=== PATIENT | male | born 1990 | race African-American/Black ===

== ENCOUNTER 2022-03-25 05:51 | Emergency (ER) | payer MEDICARE, MEDICAID, SELFPAY ==
--- NOTE | ~2022-03-25 | XR_ITS ---
EXAMINATION: XR CHEST CLINICAL INFORMATION: Covid positive. SOB. COMPARISON: None TECHNIQUE: Frontal view of the chest was obtained. FINDINGS: No significant abnormality is noted involving the heart, lungs, mediastinum, bony thorax or soft tissues. XR/XR chest 1V IMPRESSION: Unremarkable chest examination.
--- NOTE | ~2022-03-25 | CT_ITS ---
EXAMINATION: CT ABDOMEN AND PELVIS WITHOUT CONTRAST CLINICAL INFORMATION: Abdominal pain, nausea vomiting and diarrhea COMPARISON: None TECHNIQUE: Multidetector volumetric imaging was performed from the superior aspect of the liver through the pubic symphysis. Sagittal and coronal reformatted images were obtained on the technologist's workstation. This CT examination was performed using dose optimization techniques as appropriate, variously including the following: *Automated exposure control *Adjustment of mA and/or kV according to patient size (this includes techniques or standardized protocols for targeted exams where dose is matched to indication/reason for exam; i.e. extremities or head) *Use of iterative reconstruction technique DLP: 794 mGy-cm FINDINGS: LUNG BASES: The visualized lung bases are unremarkable. LIVER, GALLBLADDER, AND BILIARY TREE: The liver is normal in size, shape, and attenuation. No focal hepatic lesion or biliary ductal dilatation is present. The gallbladder is unremarkable with no evidence of radiopaque gallstones, gallbladder wall thickening, or obvious pericholecystic inflammatory changes. PANCREAS: Unremarkable. SPLEEN: Unremarkable. ADRENAL GLANDS: Unremarkable. KIDNEYS AND URETERS: The kidneys are normal in size, shape, and attenuation. No hydronephrosis, hydroureter, or calculi seen. No perinephric stranding. BLADDER: Unremarkable. GASTROINTESTINAL TRACT: The small and large bowel are unremarkable. The appendix is unremarkable. ABDOMINAL WALL: No significant hernia is appreciated. LYMPH NODES: Normal. VASCULAR: Unremarkable. PELVIC VISCERA: Uterus appears to have been removed. No pelvic mass. OSSEOUS STRUCTURES: Unremarkable. CT/CT abdomen pelvis wo con IMPRESSION: Unremarkable exam. Fleischner guidelines were followed.
[2022-03-25 05:55] VITALS: BP 126/73; PULSE 67; O2SAT 100
[2022-03-25 05:56] VITALS: BMI 30.4
[2022-03-25 06:01] VITALS: BP 132/76; PULSE 69; RESP 18; TEMP 37.1; O2SAT 100
--- NOTE | 2022-03-25 09:28 | ECG_ITS ---
Test Reason : abd pain Blood Pressure : / mmHG Vent. Rate : 064 BPM Atrial Rate : 064 BPM P-R Int : 186 ms QRS Dur : 084 ms QT Int : 390 ms P-R-T Axes : 040 052 023 degrees QTc Int : 402 ms Normal sinus rhythm with sinus arrhythmia Septal infarct , age undetermined Abnormal ECG No previous ECGs available Referred By: Mechelle Esqueda Electronically Signed By:SEAN RUFF MD
--- NOTE | 2022-03-25 09:57 | ED_ITS ---
HPI - Nausea/Vomiting/Diarrhea General Chief complaint: Nausea/Vomiting/Diarrhea Stated complaint: NAUSEA/VOMITING X'S 3 DAYS PER EMS Time Seen by Provider: 03/25/22 09:13 Source: patient Mode of arrival: ambulatory History of Present Illness HPI Narrative: 31-year-old male with past medical history of deafness, COVID-19 positive on 03/17/2022, presenting to the ED complaining of epigastric abdominal pain, nausea, vomiting, and diarrhea x3 days. Reports decreased p.o. intake/inability to tolerate p.o. admits to epigastric burning. Also reports exertional SOB. Denies fever, chills, dysuria/hematuria, flank pain, chest pain MD elicited complaint: nausea, vomiting, diarrhea and abdominal pain Onset (ago): day(s) Related Data Previous Rx's Medication Instructions Recorded aluminum-mag hydroxide-simethicone 5 ml PO 5XD PRN dyspepsia #30 mL 03/25/22 200 mg-200 mg-20 mg/5 mL oral susp (Maalox Advanced) famotidine 20 mg tablet (Pepcid) 20 mg PO DAILY #14 tabs 03/25/22 ondansetron 4 mg disintegrating 4 mg PO Q8H PRN nausea and 03/25/22 tablet vomiting #10 tabs Allergies Allergy/AdvReac Type Severity Reaction Status Date / Time Unable to Assess Allergy Verified 03/25/22 05:58 Review of Systems Review of Systems: Constitutional: No Fever, No Chills, No Fatigue, No Malaise ENT/Mouth: No Ear Pain, No Nasal Congestion, No Sinus Pain, No Hoarseness, No sore throat, No Rhinorrhea, No Swallowing Difficulty Eyes: No Eye Pain, No Swelling, No Redness, No Vision Changes Cardiovascular: No Chest Pain, No SOB, + Dyspnea on Exertion, No Edema Respiratory: No Cough, No Sputum, No Dyspnea Gastrointestinal: + Nausea, + Vomiting, + Diarrhea, No Constipation, + Abdominal pain Genitourinary: No Dysuria, No Urinary Frequency, No Hematuria,No Flank Pain, No Urinary Flow Changes Musculoskeletal: No joint pain, No Myalgias, No Joint Swelling Skin: No Skin Lesions, No rash Neuro: No Weakness, No Numbness, No Headache Yes all other systems are reviewed and are negative PMFSH Past Medical History Attestation statement: The following information was validated with the patient. Social History Social History Advance Directives: Yes Advance Directives Information Provided: Yes Advance Directives on File: No Physical Exam Vital Signs: Vital Signs: Last Vital Signs Temp 98.8 F 03/25/22 06:01 Pulse 60 03/25/22 11:13 Resp 17 03/25/22 11:13 BP 116/64 03/25/22 11:13 Pulse Ox 97 03/25/22 11:13 O2 Del Method 03/25/22 11:13 BMI result Body Mass Index 30.4 Const: General: cooperative, healthy appearing, no acute distress, alert and awake Orientation/consciousness: patient oriented x3 Limitations: no limitations HEENT: Head: Yes normal to inspection and Yes atraumatic Ears: hearing grossly normal bilaterally General nose exam: Normal external nose present Face and sinus: Yes normal facial exam Eyes: General: appearance normal, both eyes and all related structures EOM: EOMs intact bilaterally Neck: Neck: Yes normal visual inspection and Yes no meningeal signs Resp: Effort & Inspection: normal respiratory effort and no respiratory distress Auscultation: clear to auscultation bilaterally, no crackles, no rales, no rhonchi and no wheezes Cardio: Rate: regular rate Heart sounds: S1 normal heart sound present and S2 normal heart sound present GI: Inspection: Yes normal to inspection Palpation (GI): Soft to palpation, Tenderness to palpation present (GI) in the epigastrum and suprapubicly, no guarding and not rigid : General: Yes no CVA tenderness Back/Spine/Pelvis: Back: no CVA tenderness Skin: Rashes: no rashes Wounds: no wounds Neuro: General: patient oriented x3, tone normal and no meningeal signs Gait exam (Neuro): Normal gait present Extrem: General: Yes normal to inspection Course Course Course Narrative: On re-evaluation patient is sleeping comfortably -1126--labs unremarkable. No leukocytosis. UA negative -chest x-ray unremarkable -CT abdomen/pelvis unremarkable. Results discussed with patient, reports symptomatic improvement at present will p.o. challenge -patient was able to tolerate p.o. > discussed worrisome signs and symptoms and strict return precautions MDM - Nausea/Vomiting/Diarrhea MDM Narrative Medical decision making narrative: 31-year-old male with past medical history of deafness, COVID-19 positive on 03/17/2022, presenting to the ED complaining of epigastric abdominal pain, nausea, vomiting, and diarrhea x3 days. On exam vital signs stable, NAD, nontoxic appearing, abdomen soft with epigastric and suprapubic tenderness, no rebound or guarding. Concern for GERD/gastritis vs pancreatitis vs diverticulitis or UTI. Lower concern pyelo, cholecystitis/lithiasis or appendicitis. Plan: Labs, UA, CT abdomen/pelvis, CXR, IVF, symptomatic treatment, re-evaluate Differential Diagnosis Differential diagnosis: Likely gastroenteritis and dehydration Medical Records Attestation: I reviewed the patient's medical records. Lab Data Attestation: I reviewed the patient's lab results. Result diagrams: 03/25/22 09:53 03/25/22 09:53 Labs: Lab Results 03/25/22 03/25/22 03/25/22 Range/Units 09:52 09:53 09:53 WBC 7.6 (4.8-10.8) X10*3/uL RBC 4.59 L (4.60-5.80) X10*6/uL Hgb 15.0 (14.0-18.0) g/dl Hct 43.9 (42.0-52.0) % MCV 95.6 (80.0-98.0) fL MCH 32.7 (27.0-33.0) pg MCHC 34.2 (31.0-36.0) g/dl RDW 12.9 (11.0-16.0) % Plt Count 250 (160-400) X10*3/uL MPV 10.2 (9.4-12.4) fL Immature Gran % (Auto) 0.3 (0.0-0.4) % Neut % (Auto) 62.1 (45-73) % Lymph % (Auto) 29.9 (20-40) % [place] % (Auto) 6.2 (2-11) % Eos % (Auto) 1.2 (0-4) % Baso % (Auto) 0.3 (0-2) % Lymph # (Auto) 2.3 (1.2-4.9) X10*3/uL [place] # (Auto) 0.5 (0.1-1.2) X10*3/uL Eos # (Auto) 0.1 (0.0-0.4) X10*3/uL Baso # (Auto) 0.0 (0.0-0.2) X10*3/uL Abs Immat Gran (auto) 0.02 (0.00-0.03) X10*3/uL Absolute Neuts (auto) 4.7 (2.0-8.3) x10*3/uL Absolute Nucleated RBC 0.000 (0.0-0.012) X10*3/uL Nucleated RBC % (auto) 0.0 (0.0-0.2) /100WBC Sodium 138 (135-145) mmol/L Potassium 4.2 (3.3-5.1) mmol/L Chloride 105 (96-108) mmol/L Carbon Dioxide 27 (22-29) mmol/L Anion Gap 10 L (12-20) BUN 11 (9-16) mg/dL Creatinine 0.91 (0.5-1.4) mg/dL Estim Creat Clear Calc 131.0 Estimated GFR > 60 Random Glucose 96 (60-115) mg/dL Calcium 9.2 (8.4-10.2) mg/dL Magnesium 1.9 (1.6-2.6) mg/dL Total Bilirubin 0.7 (0.0-1.0) mg/dL Direct Bilirubin 0.3 (0.0-0.5) mg/dL AST 15 (5-37) U/L ALT 13 (0-40) U/L Alkaline Phosphatase 79 (39-117) U/L Total Protein 6.8 (6.5-8.0) g/dL Albumin 4.2 (3.5-5.0) g/dL Lipase 78 (8-78) U/L Urine Color YELLOW Urine Appearance CLEAR Urine pH 8.0 (5.0-8.0) Ur Specific [place] 1.015 (1.005-1.025) Urine Protein NEG (NEG-TRACE) MG/DL Urine Glucose (UA) NEG (NEG) MG/DL Urine Ketones NEG (NEG) MG/DL Urine Blood NEG (NEG) Urine Nitrite NEG (NEG) Ur Leukocyte Esterase NEG (NEG) Discharge Plan Discharge Clinical Impression: Abdominal pain, Nausea & vomiting Patient Disposition: Home, Self-Care Instructions: Acute Nausea and Vomiting (ED), Abdominal Pain (ED) Additional Instructions: Your blood work is reassuring. Your x-ray and CT scan are unremarkable Zofran as an antinausea medication, take as needed for nausea and vomiting Maalox & Pepcid will help with acid reduction Please practice of bland diet, avoid spicy food, sweets, caffeine, chocolate Please follow-up with a residential door installer. If symptoms persist or worsen, your unable to eat or drink, have fever, or constant/worsening pain please return to the emergency department Prescriptions: New famotidine [Pepcid] 20 mg tablet 20 mg PO DAILY Qty: 14 0RF alum-mag hydroxide-simeth [Maalox Advanced] 200-200-20 mg/5 mL suspension 5 ml PO 5XD PRN (Reason: dyspepsia) Qty: 30 0RF Rx Instructions: administer between meals and at bedtime ondansetron 4 mg tablet,disintegrating 4 mg PO Q8H PRN (Reason: nausea and vomiting) Qty: 10 0RF Referrals: Dalila King MD [Physician] - 5 days
[2022-03-25] MEDS: 0.9 % Sodium Chloride 1,000 ML 999 ML IV ×2 (10:02→10:49)
[2022-03-25] MEDS: Famotidine/PF 20 MG/2 ML VIAL IVPUSH (10:03)
[2022-03-25] MEDS: Lidocaine HCl Viscous 2 % 15 ML SOLUTION MUCOUS MEM (10:04)
[2022-03-25] MEDS: ondansetron HCL 4 MG/2 ML VIAL IVPUSH (10:05)
[2022-03-25] MEDS: Magnesium Hydrox/Alum Hydrox 30 ML ORAL.SUSP PO (10:05)
[2022-03-25 10:09] LABS: MANUAL DIFF FLAG NO
[2022-03-25 10:10] LABS: Basophils Percent Auto 0.3 % (0-2); Eosinophils Absolute Auto 0.1 X10*3/uL (0.0-0.4); Eosinophils Percent Auto 1.2 % (0-4); Hematocrit 43.9 % (42.0-52.0); Imm Gran Abs Auto 0.02 X10*3/uL (0.00-0.03); Imm Gran Pct Auto 0.3 % (0.0-0.4); Lymphocytes Absolute Auto 2.3 X10*3/uL (1.2-4.9); Lymphocytes Percent Auto 29.9 % (20-40); Mean Corpuscular HGB Conc 34.2 g/dl (31.0-36.0); Mean Corpuscular Hemoglobin 32.7 pg (27.0-33.0); Mean Corpuscular Volume 95.6 fL (80.0-98.0); Mean Platelet Volume 10.2 fL (9.4-12.4); Monocytes Absolute Auto 0.5 X10*3/uL (0.1-1.2); Monocytes Percent Auto 6.2 % (2-11); Neutrophils Absolute Auto 4.7 x10*3/uL (2.0-8.3); Neutrophils Percent Auto 62.1 % (45-73); Platelet Count 250 X10*3/uL (160-400); Red Blood Count 4.59 X10*6/uL (4.60-5.80); Red Cell Distribution Width 12.9 % (11.0-16.0); White Blood Count 7.6 X10*3/uL (4.8-10.8)
[2022-03-25 10:12] LABS: Appearance Urine CLEAR; Color Urine YELLOW; Glucose Urine UA NEG (NEG); Leukocyte Esterase Urine NEG (NEG); Nitrite Urine NEG (NEG); Specific Gravity - Urine 1.015 (1.005-1.025); Urine Blood NEG (NEG); Urine Ketones NEG (NEG); Urine Protein NEG (NEG-TRACE)
[2022-03-25 10:43] LABS: Alanine Aminotransferase 13 U/L (0-40); Albumin Level 4.2 g/dL (3.5-5.0); Alkaline Phosphatase 79 U/L (39-117); Anion Gap 10 (12-20); Aspartate Amino Transferase 15 U/L (5-37); Bilirubin Direct 0.3 mg/dL (0.0-0.5); Bilirubin Total 0.7 mg/dL (0.0-1.0); Blood Urea Nitrogen 11 mg/dL (9-16); Calcium 9.2 mg/dL (8.4-10.2); Carbon Dioxide 27 mmol/L (22-29); Chloride 105 mmol/L (96-108); Estimated Glomerular Filt Rate > 60; Glucose Random 96 mg/dL (60-115); Lipase 78 U/L (8-78); Magnesium 1.9 mg/dL (1.6-2.6); Potassium 4.2 mmol/L (3.3-5.1); Sodium 138 mmol/L (135-145); Total Protein 6.8 g/dL (6.5-8.0)
[2022-03-25 11:13] VITALS: BP 116/64; PULSE 60; RESP 17; O2SAT 97
[2022-03-25] MEDS: Metoclopramide HCl 10 MG/2 ML VIAL IVPUSH (12:23)
== END 2022-03-25 13:04 | disposition home or self-care (01) ==
PROVIDERS: Physician Assistant; Emergency Provider Emergency Medicine
DX: R11.2 Nausea with vomiting, unspecified (principal); R19.7 Diarrhea, unspecified; Z79.899 Other long term (current) drug therapy; R07.89 Other chest pain
CPT/HCPCS: 36415; 71045; 74176; 80048; 80076; 81003; 83690; 83735; 85025; 93005; 96361; 96374; 96375; 99284; J2405; J2765

== ENCOUNTER 2022-07-08 00:56 | Inpatient (IN) | payer MEDICARE, MEDICAID, SELFPAY ==
--- NOTE | ~2022-07-08 | XR_ITS ---
EXAMINATION: XR HAND, LEFT CLINICAL INFORMATION: Punched glass COMPARISON: None TECHNIQUE: PA, lateral, and oblique views of the left hand. FINDINGS: No fracture or dislocation. Alignment maintained. Joint spaces are maintained. While marginated lucency in the fourth digit middle phalanx, with a nonaggressive appearance. The soft tissues are unremarkable. No radiopaque foreign body. XR/XR hand LT min 3V IMPRESSION: No fracture or malalignment. No radiopaque foreign body.
[2022-07-08 01:07] VITALS: BP 127/65; PULSE 98; RESP 18; TEMP 37.6; O2SAT 96; BMI 35.6
--- OUTSIDE RECORDS SUMMARY | 2022-07-08 02:33 | XMS_ITS | Continuity of Care Document ---
:1990 Author Organization [facility] Address [address] [place] [id number]- Care Team Providers Name Role Phone Sheng Morales DO Primary Care Physician Encounter [facility] Date(s): 08/24/20 - 08/29/[address] [id number] Encounter Diagnosis Suicidal ideation (Final) - 08/24/20 Discharge Disposition: Transfer to [facility] Facility Attending Physician: Korin Glass MD Admitting Physician: Korin Glass MD Referring Physician: Not on Staff, Referring MD Allergies, Adverse Reactions, Alerts Substance Reaction Severity Status NKA Active Immunizations Given and Recorded Vaccine Date Status Refusal Reason Human Papillomavirus Vaccine 04/27/12 Given influ virus vac, H1N1, inactive(oldterm) 09/03/09 Given Influenza Vaccine (oldterm) 06/12/09 Given Menactra (oldterm) 08/12/07 Given Meningococcal Conjugate Vaccine 08/12/07 Given influenza virus vaccine, inactivated 08/12/07 Given Tet/Diphth/Acel, Pertussis (oldterm) 02/20/05 Given Varicella Virus Vaccine 02/20/05 Given Measles/Mumps/Rubella Virus Vaccine 06/06/04 Given Measles/Mumps/Rubella Virus Vaccine 12/06/93 Given Haemophilus B Conj Vaccine (oldterm) 05/15/04 Given Haemophilus B Conj Vaccine (oldterm) 02/12/94 Given Haemophilus B Conj Vaccine (oldterm) 05/31/93 Given Haemophilus B Conj Vaccine (oldterm) 02/25/93 Given Haemophilus B Conj Vaccine (oldterm) 92 Given Diphth/Tet/Pertussis, Acel (oldterm) 06/19/97 Given Diphth/Tet/Pertussis, Acel (oldterm) 03/12/94 Given Diphth/Tet/Pertussis, Acel (oldterm) 05/31/93 Given Diphth/Tet/Pertussis, Acel (oldterm) 02/25/93 Given Diphth/Tet/Pertussis, Acel (oldterm) 92 Given Poliovirus Vaccine, Inactivated 06/19/97 Given Poliovirus Vaccine, Inactivated 03/12/94 Given Poliovirus Vaccine, Inactivated 02/25/93 Given Poliovirus Vaccine, Inactivated 92 Given Hepatitis B Vaccine (old term)1 12/13/94 Given Hepatitis B Vaccine (old term)2 08/14/94 Given Hepatitis B Vaccine (old term)3 92 Given 1Admin Note: exact day [id number] Note: exact day [id number] Note: exact day unknown Medications acetaminophen 325 mg oral tablet 650 mg, By Mouth, Every 8 hours, PRN, Refills 0, Maintenance, Pain , Moderate, 08/28/20 17:04:00 EST, Partial fill upon patient request if the prescription is for a schedule II opioid drug. Start Date: 08/28/20 Status: OrderedAerochamber See Instructions, # 1 units, Refills 5, Tot. Refills 5, Maintenance, to aid in delivery of meds 1 puff breath in over 10 seconds wait one minute repeat, 07/01/10 10:02:47 Start Date: 07/01/10 Status: Orderedhearing aid hearing aid, See Instructions, # 1 units, Refills 0, Tot. Refills 0, Maintenance, please evaluate and dispense a new hearing aid dx hearing loss, 01/13/12 12:19:40 Start Date: 01/13/12 Status: Orderedhearing evaluation at [facility] on 02/15 at 10am hearing evaluation at [facility] on 02/15 at 10am, See Instructions, # 1 application, Refills 0, Tot. Refills 0, Maintenance, dx hearing loss, 01/13/12 12:18:21 Start Date: 01/13/12 Status: OrderedhydrOXYzine pamoate 25 mg oral capsule 2 capsule = 50 mg, By Mouth, Every 6 hours, PRN Anxiety, 0 Refills, Maintenance, 08/28/20 17:04:00 EST, Capsule, Partial fill upon patient request if the prescription is for a schedule II opioid drug. Start Date: 08/28/20 Status: Orderedibuprofen 400 mg oral tablet 400 mg, 1, tablet, By Mouth, Every 8 hours, PRN, Refills 0, Maintenance, Pain , Moderate, 08/28/20 17:04:00 EST, Partial fill upon patient request if the prescription is for a schedule II opioid drug. Start Date: 08/28/20 Status: OrderedMaalox Plus Liquid 30 mL, By Mouth, Every 8 hours, PRN Indigestion, 0 Refills, Maintenance, 08/28/20 17:04:00 EST, Suspension, Partial fill upon patient request if the prescription is for a schedule II opioid drug. Start Date: 08/28/20 Status: Orderednaproxen 500 mg oral tablet 1 tablet = 500 mg, By Mouth, 2 times a day, # 60 tablet, 0 Refills, Maintenance, Tablet, 1 tablet ByMouth 2 times a day Start Date: 04/25/13 Status: OrderedProAir HFA 90 mcg/inh inhalation aerosol with adapter 2 puffs, Inhalation, Every 4 hours, PRN for wheezing, # 8.5 Gm, 2 Refills, Maintenance, Aerosol Start Date: 07/01/10 Status: OrderedtraZODone 50 mg oral tablet 50 mg, 1, tablet, By Mouth, Daily at bedtime, PRN, Refills 0, Maintenance, Sleep, 08/28/20 17:04:00 EST, Partial fill upon patient request if the prescription is for a schedule II opioid drug. Start Date: 08/28/20 Status: OrderedZoloft 50 mg oral tablet 0.5 tablet = 25 mg, By Mouth, Daily, 0 Refills, Maintenance, 08/28/20 17:04:00 EST, Tablet, Partial fill upon patient request if the prescription is for a schedule II opioid drug. Start Date: 08/28/20 Status: Ordered Problem List Condition Effective Dates Status Health Status Informant Behavior of childhood and Active adolescence(Confirmed) Deaf mutism(Confirmed) Active OBESITY(Confirmed) Active Vital Signs Most recent to oldest 1 2 3 [Reference Range]: Height 184 cm 184 cm 184 cm (08/29/20 8:15 AM) (08/29/20 8:10 AM) (08/28/20 10:52 AM) Weight 112.9 kg (08/28/20 4:24 AM) Oxygen Saturation [94-100 95 % 95 % 98 % %] (08/29/20 8:15 AM) (08/29/20 8:10 AM) (08/28/20 10:52 AM) Pulse Rate [55-90 bpm] 84 bpm 84 bpm 79 bpm (08/29/20 8:15 AM) (08/29/20 8:10 AM) (08/28/20 10:52 AM) Body Mass Index 33.35 [18.5-24.99] *>HHI* (08/28/20 4:24 AM) Blood Pressure 125/72 mm Hg 125/72 mm Hg 129/72 mm Hg [90-138/55-84 mm Hg] (08/29/20 8:15 AM) (08/29/20 8:10 AM) (08/14 01/31 10:52 AM) Respiratory Rate [16-30 16 br/min 18 br/min 16 br/mi n br/min] (08/29/20 8:15 AM) (08/29/20 8:10 AM) (08/28/20 10:52 AM) Temperature [96.8-100.4 97.6 DegF 97.6 DegF 98.2 Deg F DegF] (08/29/20 8:15 AM) (08/29/20 8:10 AM) (08/28/20 10:52 AM) Mode of Delivery (Oxygen) Room air Room air Room a ir (08/29/20 8:15 AM) (08/29/20 8:10 AM) (08/28/20 10:52 AM) Blood pressure sites Arm, right Arm, right Arm, right (08/29/20 8:10 AM) (08/28/20 10:52 AM) (08/28/20 4:42 AM) Temperature Route Temporal Temporal Temporal (08/29/20 8:15 AM) (08/29/20 8:10 AM) (08/28/20 10:52 AM) Dry Weight 112.9 kg (08/28/20 4:24 AM) Weight Obtained Via Standing scale (08/28/20 4:24 AM) Dry Weight Obtained Via Standing scale (08/28/20 4:24 AM)
[2022-07-08] MEDS: Diphth,Pertus(ACell),Tet Adult 0.5 ML SYRINGE IM (02:42)
[2022-07-08 02:46] LABS: MANUAL DIFF FLAG NO
--- NOTE | 2022-07-08 02:47 | PC.NURSE ---
Pt. informed he needed a tetanus shot. Pt. gave verbal consent. VIS provided.
--- NOTE | 2022-07-08 02:48 | PC.NURSE ---
Pt. calm and cooperative during hand stitches. Pt. expressed pain during lidocaine shots, but tolerated procedure well.
[2022-07-08 02:56] LABS: Basophils Percent Auto 0.3 % (0-2); Eosinophils Percent Auto 0.1 % (0-4); Hematocrit 42.5 % (42.0-52.0); Hemoglobin 14.5 g/dl (14.0-18.0); Imm Gran Abs Auto 0.04 X10*3/uL (0.00-0.03); Imm Gran Pct Auto 0.3 % (0.0-0.4); Lymphocytes Absolute Auto 1.4 X10*3/uL (1.2-4.9); Lymphocytes Percent Auto 10.3 % (20-40); Mean Corpuscular HGB Conc 34.1 g/dl (31.0-36.0); Mean Corpuscular Hemoglobin 32.3 pg (27.0-33.0); Mean Corpuscular Volume 94.7 fL (80.0-98.0); Mean Platelet Volume 10.2 fL (9.4-12.4); Monocytes Percent Auto 7.1 % (2-11); Neutrophils Absolute Auto 11.5 x10*3/uL (2.0-8.3); Neutrophils Percent Auto 81.9 % (45-73); Platelet Count 255 X10*3/uL (160-400); Red Blood Count 4.49 X10*6/uL (4.60-5.80); Red Cell Distribution Width 12.8 % (11.0-16.0)
[2022-07-08] MEDS: Lidocaine HCl 2 % MPF 5 ML VIAL 10 ML SUBCUT (02:56)
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
[2022-07-08 03:12] LABS: Ethanol < 10 mg/dL
[2022-07-08 03:15] LABS: Alanine Aminotransferase 11 U/L (0-40); Albumin Level 4.5 g/dL (3.5-5.0); Alkaline Phosphatase 90 U/L (39-117); Anion Gap 14 (12-20); Aspartate Amino Transferase 18 U/L (5-37); Bilirubin Total 0.5 mg/dL (0.0-1.0); Blood Urea Nitrogen 14 mg/dL (9-16); Calcium 9.3 mg/dL (8.4-10.2); Carbon Dioxide 24 mmol/L (22-29); Chloride 106 mmol/L (96-108); Creatinine Clr Calc Pharmacy 105.4; Estimated Glomerular Filt Rate > 60; Glucose Random 143 mg/dL (60-115); Potassium 3.8 mmol/L (3.3-5.1); Sodium 140 mmol/L (135-145); Total Protein 7.3 g/dL (6.5-8.0)
[2022-07-08 03:17] LABS: COVID-19 Test Negative (Negative)
--- NOTE | 2022-07-08 04:09 | PC.NURSE ---
Of noteL: the wardrobe manager Ipad was placed at the bedside for the provider to use during her initial assessment but the provider decided not tu use the Ipad since, per the provider, the pt is able to r4ead lips really well. Other staff memebers, including myself, were able to communicate extremely effectively with the patient by writing and allowing him to write.
--- NOTE | 2022-07-08 04:44 | PC.NURSE ---
BHN referral submitted at this time
[2022-07-08] MEDS: LORazepam 1 MG TABLET 2 MG PO ×2 (05:28→15:32)
--- NOTE | 2022-07-08 05:46 | PC.NURSE ---
Addendum entered by Chau Durán RN 07/08/22 06:21: Patient is deaf and non-verbal Original Note: Patient was transferred from main ED, independent ambulation, per report from RN patient received 18 stitches for his left hand laceration, left has intact dressing, patient appears anxious and mad, attempted to communicate via CYRACOM, patient expressed his deep frustration over how he is being treated at home by his parents, patient reported he is anxious, agreed to take medication for his anxiety, provider notified/ordered Ativan 2 mg PO administered at 0528, pending effect, patient is currently in his bed resting, per ED RN report BHN referral completed/confirmed/pending ETA, med rec completed/patient is currently not on any home medication, urine pending, VSS, will continue to monitor.
--- NOTE | 2022-07-08 08:27 | PC.NURSE ---
Patient resting, resp unlabored
[2022-07-08 11:46] VITALS: BP 128/68; PULSE 82; TEMP 37.1; O2SAT 98
--- NOTE | 2022-07-08 12:16 | PC.NURSE ---
Patient evaluated with diet counselor present- patient alert, oriented, denies SI/HI, denies AH/VH. Patient evaluated by BHN, may be discharged.
--- NOTE | 2022-07-08 15:45 | PC.NURSE ---
[facility] staff in to transport patient to . Dressing changed to right hand- sutures intact, dry and clean. Patient assessed w/ spanish medical interpreter present. questions answered as asked, explained to patient admission and inpatient process. no further questions asked. Patient initially tearful, was willing to take Ativan as ordered for anxiety.
[2022-07-08 16:44] VITALS: BP 123/76; PULSE 71; TEMP 36.6
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
--- NOTE | 2022-07-08 20:38 | HO.PSYADMNOT ---
HPI Chief Complaint: Agitation Diagnostics Vital Signs (24Hr): Vital Signs - 24 hr 07/08/22 01:07 07/08/22 11:46 07/08/22 16:44 Temperature 99.7 F 98.7 F 97.9 F Pulse Rate 98 82 71 Respiratory Rate 18 Blood Pressure 127/65 128/68 123/76 Pulse Oximetry 96 98 Oxygen Delivery Method Room Air Room Air BMI result Body Mass Index 35.6 Labs Results: 07/08/22 02:41 07/08/22 02:41 Labs: Laboratory Results - last 48 hr 07/08/22 07/08/22 07/08/22 02:41 02:41 02:41 WBC 14.0 H RBC 4.49 L Hgb 14.5 Hct 42.5 MCV 94.7 MCH 32.3 MCHC 34.1 RDW 12.8 Plt Count 255 MPV 10.2 Immature Gran % (Auto) 0.3 Neut % (Auto) 81.9 H Lymph % (Auto) 10.3 L [place] % (Auto) 7.1 Eos % (Auto) 0.1 Baso % (Auto) 0.3 Lymph # (Auto) 1.4 [place] # (Auto) 1.0 Eos # (Auto) 0.0 Baso # (Auto) 0.0 Abs Immat Gran (auto) 0.04 H Absolute Neuts (auto) 11.5 H Absolute Nucleated RBC 0.000 Nucleated RBC % (auto) 0.0 Sodium 140 Potassium 3.8 Chloride 106 Carbon Dioxide 24 Anion Gap 14 BUN 14 Creatinine 1.26 Estim Creat Clear Calc 105.4 Estimated GFR > 60 Random Glucose 143 H D Calcium 9.3 Total Bilirubin 0.5 AST 18 ALT 11 Alkaline Phosphatase 90 Total Protein 7.3 Albumin 4.5 Ethyl Alcohol COVID-19 (NOLAN) Negative COVID-19 Clin Com See Note 07/08/22 02:41 WBC RBC Hgb Hct MCV MCH MCHC RDW Plt Count MPV Immature Gran % (Auto) Neut % (Auto) Lymph % (Auto) [place] % (Auto) Eos % (Auto) Baso % (Auto) Lymph # (Auto) [place] # (Auto) Eos # (Auto) Baso # (Auto) Abs Immat Gran (auto) Absolute Neuts (auto) Absolute Nucleated RBC Nucleated RBC % (auto) Sodium Potassium Chloride Carbon Dioxide Anion Gap BUN Creatinine Estim Creat Clear Calc Estimated GFR Random Glucose Calcium Total Bilirubin AST ALT Alkaline Phosphatase Total Protein Albumin Ethyl Alcohol < 10 COVID-19 (NOLAN) COVID-19 Clin Com Imaging Radiology Impressions: ITS Impressions Hand X-Ray 07/08/22 01:35 IMPRESSION: No fracture or malalignment. No radiopaque foreign body. Meds/Allergies Meds Home Medications Medication Instructions Recorded Confirmed Type No Known Home Meds 07/08/22 07/08/22 History Allergies Allergies Allergy/AdvReac Type Severity Reaction Status Date / Time Unable to Assess Allergy Verified 03/25/22 05:58
[2022-07-09 08:09] VITALS: BP 140/74; PULSE 65; RESP 16; TEMP 36.8; O2SAT 97
[2022-07-09 09:08] LABS: MANUAL DIFF FLAG NO
[2022-07-09 09:12] LABS: Basophils Percent Auto 0.5 % (0-2); Eosinophils Absolute Auto 0.1 X10*3/uL (0.0-0.4); Eosinophils Percent Auto 1.4 % (0-4); Hematocrit 44.3 % (42.0-52.0); Hemoglobin 15.1 g/dl (14.0-18.0); Imm Gran Abs Auto 0.02 X10*3/uL (0.00-0.03); Imm Gran Pct Auto 0.2 % (0.0-0.4); Lymphocytes Absolute Auto 2.4 X10*3/uL (1.2-4.9); Lymphocytes Percent Auto 28.5 % (20-40); Mean Corpuscular HGB Conc 34.1 g/dl (31.0-36.0); Mean Corpuscular Hemoglobin 32.2 pg (27.0-33.0); Mean Corpuscular Volume 94.5 fL (80.0-98.0); Mean Platelet Volume 10.6 fL (9.4-12.4); Monocytes Absolute Auto 0.7 X10*3/uL (0.1-1.2); Monocytes Percent Auto 8.7 % (2-11); Neutrophils Absolute Auto 5.1 x10*3/uL (2.0-8.3); Neutrophils Percent Auto 60.7 % (45-73); Platelet Count 242 X10*3/uL (160-400); Red Blood Count 4.69 X10*6/uL (4.60-5.80); Red Cell Distribution Width 13.2 % (11.0-16.0); White Blood Count 8.5 X10*3/uL (4.8-10.8)
[2022-07-09 09:25] LABS: Estimated Average Glucose 103 mg/dL; Hemoglobin A1c % 5.2 %
[2022-07-09 09:40] LABS: Cholesterol 167 mg/dL; HDL Cholesterol 39 mg/dL; LDL Cholesterol Calculated 116 mg/dl; Triglycerides 60 mg/dL
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
[2022-07-09 17:43] VITALS: BP 122/78; PULSE 82; RESP 16; TEMP 36.4; O2SAT 96
[2022-07-09] MEDS: traZODone HCL 50 MG TABLET PO (21:32)
--- NOTE | 2022-07-10 05:33 | PC.NURSE ---
05:00 Pt. came to me with a note written on a napkin stating I am afraid of my parents I don't ever want to speak to them again. When asked if he wanted them to be restricted from coming here he nodded affirmatively. When asked if he wanted the doctor speak to them he nodded affirmatively again.
[2022-07-10 07:00] VITALS: BMI 33.9
[2022-07-10 08:44] LABS: Thyroid Stimulating Hormone 1.27 uIU/mL (0.32-4.0)
[2022-07-10 09:04] LABS: Folate 10.4 ng/mL (> or = 4.0); Vitamin B12 514 pg/mL (200-900)
[2022-07-10] MEDS: Sertraline HCL 50 MG TABLET PO (09:17)
[2022-07-10 09:22] VITALS: BP 146/95; PULSE 84; RESP 18; TEMP 36.6; O2SAT 98
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
== END 2022-07-10 13:45 | disposition home or self-care (01) | DRG 882 ==
LOC: HO.ED 03:21 → HO.PM5 15:26
PROVIDERS: Admitting Provider Psychiatry & Neurology Psychiatry; Emergency Provider Student in an Organized Health Care Education/Training Program; Visit Provider Clinical Nurse Specialist Psychiatric/Mental Health, Adult
DX: F43.25 Adjustment disorder with mixed disturbance of emotions and conduct (principal); S61.412A Laceration without foreign body of left hand, initial encounter; W25.XXXA Contact with sharp glass, initial encounter; Z20.822 Contact with and (suspected) exposure to COVID-19; Z23 Encounter for immunization; H91.93 Unspecified hearing loss, bilateral
CPT/HCPCS: 36415; 73130; 80053; 80061; 82077; 82607; 82746; 83036; 84443; 85025; 87635; 90686; 90715; 90792; 99285

== ENCOUNTER 2022-07-17 15:56 | Emergency (ER) | payer MEDICARE, MEDICAID, SELFPAY ==
[2022-07-17 16:01] VITALS: BP 112/52; PULSE 77; RESP 18; TEMP 36.1; O2SAT 97; BMI 30.5
== END 2022-07-17 18:10 | disposition left against medical advice (07) ==
PROVIDERS: Emergency Provider Emergency Medicine; PCP Family Medicine
DX: Z48.02 Encounter for removal of sutures (principal)
CPT/HCPCS: 99281

== ENCOUNTER 2023-10-08 14:25 | Outpatient (REF) | payer MEDICARE, MEDICAID, SELFPAY ==
--- NOTE | ~2023-10-08 | XR_ITS ---
EXAMINATION: XR RIBS, RIGHT CLINICAL INFORMATION: Chest wall injury. Posterior chest pain. COMPARISON: None available. TECHNIQUE: 3 views of the right ribs were obtained. FINDINGS: Lungs are clear. No consolidation, pneumothorax, or pleural effusion. The cardiomediastinal silhouette and pulmonary vasculature are normal. Osseous structures are unremarkable. Ribs are intact. No fractures are identified. XR/XR ribs RT min 3V w CXR1V IMPRESSION: Unremarkable chest examination.
== END 2023-10-08 14:26 | disposition home or self-care (01) ==
LOC: HO.HHCX 14:25
PROVIDERS: Visit Provider Emergency Medicine
DX: R07.89 Other chest pain (principal); S29.9XXA Unspecified injury of thorax, initial encounter
CPT/HCPCS: 71101

== ENCOUNTER 2024-03-31 11:55 | Outpatient (REF) | payer MEDICARE, MEDICAID, SELFPAY ==
[2024-03-31 13:42] LABS: Alanine Aminotransferase 13 U/L (0-40); Albumin Level 4.4 g/dL (3.5-5.0); Alkaline Phosphatase 83 U/L (39-117); Anion Gap 11 (12-20); Aspartate Amino Transferase 17 U/L (5-37); Bilirubin Direct 0.2 mg/dL (0.0-0.5); Bilirubin Total 0.6 mg/dL (0.0-1.0); Blood Urea Nitrogen 11 mg/dL (9-16); Calcium 9.3 mg/dL (8.4-10.2); Carbon Dioxide 26 mmol/L (22-29); Chloride 107 mmol/L (96-108); Cholesterol 162 mg/dL (<200); Estimated Glomerular Filt Rate > 60; Glucose Random 93 mg/dL (60-115); HDL Cholesterol 42 mg/dL (>40); LDL Cholesterol Calculated 110 mg/dL (<100); Sodium 140 mmol/L (135-145); Total Protein 7.4 g/dL (6.5-8.0); Triglycerides 52 mg/dL (<150)
[2024-03-31 14:20] LABS: HIV AB/AG Nonreactive (Nonreactive); HIV Num 1 0.04 S/CO (0.00-0.99); Syphilis Screen Nonreactive (Nonreactive); ~HepC Num1 0.86 S/CO (0.00-0.79)
[2024-03-31 15:32] LABS: CT PCR NOT DETECTED (Not Detect.); NG PCR NOT DETECTED (Not Detect.)
[2024-04-01 05:16] LABS: ~HepC Num2 0.89; ~HepC Num3 0.89; ~Hepatitis C Antibody GRAYZONE (Nonreactive)
[2024-04-04 11:24] LABS: HCV Log PCR <1.18 NOT DETECTED Log IU/mL (NOT DETECTED); HepC Viral Load <15 NOT DETECTED IU/mL (NOT DETECTED)
== END 2024-03-31 11:56 | disposition home or self-care (01) ==
LOC: HO.HHCL 11:55
PROVIDERS: Visit Provider Family Medicine
DX: E66.9 Obesity, unspecified (principal); Z11.3 Encounter for screening for infections with a predominantly sexual mode of transmission
CPT/HCPCS: 36415; 80048; 80061; 80076; 86780; 86803; 87389; 87491; 87522; 87591

== ENCOUNTER 2025-04-19 14:59 | Outpatient (REF) | payer MEDICARE, SELFPAY ==
--- OUTSIDE RECORDS SUMMARY | 2025-04-19 15:32 | XMS_ITS | Encounter Summary ---
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 I am not s ure 04/19/[address] you li ve. Do you have problems with any of the following? Water leaks 04/19/2025 Food Insecurity Answer Date Recorded Within the past 12 months, y ou worried that your food would run out before you got money to buy more: Never True 2024 Within the past 12 months,th e food you bought just didn't last and you didn't have enough money to get more: Sometimes True 04/19/2025 Transportation Answer Date Recorded In the past 12 months, has l ack of transportation kept you from medical appts, meetings, work or from getting things needed for daily living? Yes, it has kept me from non-medical meetings, work, or getting things that I need 04/19/2025 Utilities Answer Date Recorded In the past 12 months, has t he electric, gas, oil or water company threatened to shut off services in your home? Yes 04/19/2025 Depression Answer Date Recorded Patient Health Questionnaire-2 Score 0 04/19/2025 Internet Access Answer Date Recorded Internet Access Q1 Yes 04/11/2025 Internet Access Q2 Not on file 04/11/2025 Sex and Gender Information Value Date Recorded Sex Assigned at Male 07/14/2022 10:36 AM EDT Legal Sex Male 10:36 AM EDT Gender Identity Male 07/14/2022 10:36 AM EDT Sexual Orientation Choose not to disclose 2021 10:36 AM EDT documented as of this encounter Functional Status * Over the past 2 weeks, how often have you been bothered by any of the following problems? Question Answer Date of Assessment Author Patient Health Questionnaire-2 Score 0 02/2025 2:39 PM Nataliia Michael MA * Little interest or pleasure in doing things Answer Date of Assessment Author Not at all 04/19/2025 2:39 PM MADALYNT David Jimenez MA * Feeling down, depressed, or hopeless Answer Date of Assessment Author Not at all 04/19/2025 2:39 PM EDT David Jimenez MA * Trouble falling or staying asleep, or sleeping too much Answer Date of Assessment Author More than half the days 04/19/2025 2:39 PM EDT Nataliia Mackenzie MA * Feeling tired or having little energy Answer Date of Assessment Author Not at all 04/19/2025 2:39 PM MADALYNT David Jimenez MA * Poor appetite or overeating Answer Date of Assessment Author Not at all 04/19/2025 2:39 PM MADALYNT David Jimenez MA * Feeling bad about yourself - or that you are a failure or have let yourself or your family down Answer Date of Assessment Author Not at all 04/19/2025 2:39 PM David Michael MA * Trouble concentrating on things, such as reading the newspaper or watching television Answer Date of Assessment Author Not at all 04/19/2025 2:39 PM David Michael MA * Moving or speaking so slowly that other people could have noticed? Or the opposite - being so fidgety or restless that you have been moving around a lot more than usual. Answer Date of Assessment Author Not at all 04/19/2025 2:39 PM EDT David Jimenez MA * Thoughts that you would be better off or hurting yourself in some way Answer Date of Assessment Author Not at all 04/19/2025 2:39 PM EDT David Jimenez MA * Patient Health Questionnaire-9 Score Answer Date of Assessment Author 2 04/19/2025 2:39 PM EDT David Jimenez MA * Over the last 2 weeks, how often have you been bothered by any of the following problems? Question Answer Date of Assessment Author Feeling nervous, anxious, or on edge 0 02/2025 2:39 PM EDT Nataliia Jimenez MA Not being able to stop or co ntrol worrying 1 04/19/2025 2:39 PM EDT Nataliia Jimenez MA Worrying too much about diff erent things 1 04/19/2025 2:39 PM EDT Nataliia Jimenez MA Trouble relaxing 0 04/19/2025 2:39 PM EDT Nataliia Mackenzie MA Being so restless that it is hard to sit still 0 04/19/2025 2:39 PM EDT Nataliia Jimenez MA Becoming easily annoyed or irritable 0 02/2025 2:39 PM EDT Nataliia Jimenez MA Feeling afraid as if somethi ng awful might happen 0 04/19/2025 2:39 PM EDT Nataliia Jimenez MA PATRICA-7 Total Score 2 04/19/2025 2:39 PM EDT Nataliia Jimenez MA documented as of this encounter Plan of Treatment Not on file documented as of this encounter Visit Diagnoses Not on filedocumented in this encounter Additional Health Concerns Assessment Noted Time PHQ-9 Depression Total Score: 2 04/19/20 2:39 PM EDT documented as of this encounter Care Teams Pipeline Superintendent Relationship Specialty Start Date End Date Selma Morrell MD [address] [place] [address] PCP - General Family Medicine 12/01/19 [place] [facility] Case Management 04/19/25 [facility]upa [place] [facility] Case Management 04/19/25 documented as of this encounter
[2025-04-19 16:38] LABS: MANUAL DIFF FLAG NO
[2025-04-19 16:41] LABS: Hematocrit 40.1 % (42.0-52.0); Hemoglobin 14.1 g/dl (14.0-18.0); Imm Gran Abs Auto 0.02 X10*3/uL (0.00-0.03); Imm Gran Pct Auto 0.3 % (0.0-0.4); Lymphocytes Absolute Auto 2.5 X10*3/uL (1.2-4.9); Mean Corpuscular HGB Conc 35.2 g/dl (31.0-36.0); Mean Corpuscular Hemoglobin 32.7 pg (27.0-33.0); Mean Corpuscular Volume 93.0 fL (80.0-98.0); NRBC Abs Auto 0.000 X10*3/uL (0.0-0.012); NRBC Pct Auto 0.0 /100WBC (0.0-0.2); Platelet Count 237 X10*3/uL (160-400); Red Blood Count 4.31 X10*6/uL (4.60-5.80); White Blood Count 6.9 X10*3/uL (4.8-10.8)
[2025-04-19 16:54] LABS: Alanine Aminotransferase 29 U/L (0-40); Albumin Level 4.5 g/dL (3.5-5.0); Alkaline Phosphatase 82 U/L (39-117); Anion Gap 10 (12-20); Aspartate Amino Transferase 22 U/L (5-37); Blood Urea Nitrogen 13 mg/dL (9-16); Calcium 8.9 mg/dL (8.4-10.2); Carbon Dioxide 26 mmol/L (22-29); Chloride 109 mmol/L (96-108); Cholesterol 154 mg/dL (<200); Estimated Glomerular Filt Rate > 60; HDL Cholesterol 40 mg/dL (>40); Potassium 4.0 mmol/L (3.3-5.1); Sodium 141 mmol/L (135-145); Total Protein 6.8 g/dL (6.5-8.0); Triglycerides 76 mg/dL (<150)
[2025-04-19 16:55] LABS: Hemoglobin A1C 128.3784 umol/L; Total Hemoglobin (HGBA1C) 3688.6231 umol/L
[2025-04-20 07:38] LABS: Syphilis Screen Nonreactive (Nonreactive)
[2025-04-20 08:16] LABS: HIV Num 1 0.05 S/CO (0.00-0.99); ~HepC Num1 0.64 S/CO (0.00-0.79); ~Hepatitis C Antibody Nonreactive (Nonreactive)
[2025-04-20 12:20] LABS: CT PCR Urine NOT DETECTED (Not Detect.); NG PCR Urine NOT DETECTED (Not Detect.)
== END 2025-04-19 15:00 | disposition home or self-care (01) ==
LOC: HO.HHCL 14:59
PROVIDERS: PCP Family Medicine; Visit Provider Family Medicine
DX: Z11.3 Encounter for screening for infections with a predominantly sexual mode of transmission (principal); Z13.220 Encounter for screening for lipoid disorders; Z13.1 Encounter for screening for diabetes mellitus; Z11.4 Encounter for screening for human immunodeficiency virus [HIV]; Z11.8 Encounter for screening for other infectious and parasitic diseases; Z11.59 Encounter for screening for other viral diseases; E66.811 Obesity, class 1
CPT/HCPCS: 80048; 80061; 80076; 83036; 85025; 86780; 86803; 87389; 87491; 87591